=== PATIENT | female | born 1980 | race Caucasian/White ===

== ENCOUNTER → 2023-11-26 13:38 | Outpatient (BNVA) | payer MEDICAID, SELFPAY | PROVIDERS: Visit Provider Nurse Practitioner Family | DX: D48.5 Neoplasm of uncertain behavior of skin (principal); L82.0 Inflamed seborrheic keratosis; L57.8 Other skin changes due to chronic exposure to nonionizing radiation; L81.4 Other melanin hyperpigmentation; D22.62 Melanocytic nevi of left upper limb, including shoulder; L82.1 Other seborrheic keratosis; Z80.8 Family history of malignant neoplasm of other organs or systems | CPT/HCPCS: 11102; 17110; 99213 ==